=== PATIENT | male | born 1940 | race African-American/Black ===

== ENCOUNTER → 2018-08-10 | Outpatient (REF) | payer MEDICARE, MEDICAID ==
[~2018-08-10] MED LIST: ACETAMIN325 MG PO; ASPIRIN LOW DOS81 M2 PO; ASPIRIN81 MG PO; CIALIS5 MG PO; CIPROFLOXACN500 MG PO; CORTISPORIN OTI10 M1 OT; DICLOFENAC SODI75 MG PO; FLULAVAL IM; FLUZONE SPLT1 M1 IM; GLAUCOMA MEDS; HTN MED; LIPITOR40 MG PO; LISINOPRIL10 MG PO; LOPRESSOR 550 MG/TAB PO; MEDROL4 M1 PO; METOPROL TAR50 MG PO; METOPROLOL TART50 MG PO; PLAVIX75 MG PO; TRAVATAN Z0.004 % OU; ULTRAM50 M1 PO; [UNRECOGNIZED DRUG - OTHER] OT; [UNRECOGNIZED DRUG - REMARK]
[2018-08-10 09:14] LABS: ALBUMIN 4.5 g/dL (3.2-5.0); ALKALINE PHOSPHATASE 82 u/l (38-126); ANION GAP 16 (6-22 (CALC)); BILIRUBIN, TOTAL 0.8 mg/dL (0.0-1.4); BUN 16 mg/dL (8-23); BUN/CREATININE RATIO 17 (12-20 (CALC)); CALCULATED LDLCHOLESTEROL 22 mg/dL (62-129 (CALC)); CARBON DIOXIDE 24 mmol/l (22-30); CHLORIDE 104 mmol/l (95-108); CHOLESTEROL HDL RATIO 1.4 (<4.4 (CALC)); GFR > 60 ML/MIN (>=60 (CALC)); GFR FOR AFR.AMER. > 60 ML/MIN (>=60 (CALC)); HDL CHOLESTEROL 76 mg/dL (>=40); POTASSIUM 4.8 mmol/l (3.5-5.1); SGOT/AST 28 u/l (19-48); SODIUM 139 mmol/l (137-146); TOTAL CHOLESTEROL 109 mg/dl (0-199); TOTAL PROTEIN 7.8 g/dL (6.3-8.2); TOTAL TRIGLYCERIDES 57 mg/dl (30-149); VLDL CHOLESTROL 11 mg/dl (0-38 (CALC))
[2018-08-10 10:27] LABS: HEMATOCRIT 42.9 % (39.0-50.0); HEMOGLOBIN 13.8 g/dl (14.0-18.0); IMMATURE GRANULOCYTES 0.2 % (0.0-5.0); MEAN CELL VOLUME 90.3 fL CALC (80.0-100.0); MEAN CORPUSCULAR HGB 29.1 pG CALC (26.0-32.0); MEAN CORPUSCULAR HGB CONC 32.2 g/L CALC (32.0-36.0); NEUT# 1.73 thou/uL (1.82-7.42); RED BLOOD COUNT 4.75 mill/uL (4.70-6.10); RED CELL DISTRI WIDTH 14.5 % (11.5-15.5)
== END | disposition home or self-care (01) ==
LOC: LAB 07:58
PROVIDERS: ATTEND Nurse Practitioner Family
DX: E78.2 Mixed hyperlipidemia (principal); I10 Essential (primary) hypertension

== ENCOUNTER 2020-09-23 20:17 | Emergency (ER) | payer MEDICARE, MEDICAID ==
[2020-09-23 20:56] LABS: IMMATURE GRANULOCYTES 0.2 % (0.0-5.0); MEAN CORPUSCULAR HGB CONC 31.8 g/dL CAL (32.0-36.0); NEUT# 5.74 thou/uL (1.82-7.42); RED BLOOD COUNT 4.5 mill/uL (4.70-6.10); RED CELL DISTRI WIDTH 14.2 % (11.5-15.5)
[2020-09-23 20:58] LABS: HEMATOCRIT 39.6 % (39.0-50.0); HEMOGLOBIN 12.6 g/dl (14.0-18.0)
[2020-09-23 21:11] LABS: PROTHROMBIN TIME 10.5 SECONDS (9.0-12.5)
[2020-09-23 21:12] LABS: ALKALINE PHOSPHATASE 87 u/l (38-126); ANION GAP 9 (6-22 (CALC)); BILIRUBIN, TOTAL 0.6 mg/dL (0.0-1.4); BUN 11 mg/dL (8-23); BUN/CREATININE RATIO 10 (12-20 (CALC)); CARBON DIOXIDE 29 mmol/l (22-30); CHLORIDE 99 mmol/l (95-108); CREATININE 1.1 mg/dL (0.7-1.3); GFR > 60 ML/MIN (>=60 (CALC)); GFR FOR AFR.AMER. > 60 ML/MIN (>=60 (CALC)); POTASSIUM 4.3 mmol/l (3.5-5.1); SGOT/AST 30 u/l (19-48); SODIUM 133 mmol/l (137-146); TOTAL PROTEIN 7.2 g/dL (6.3-8.2)
[2020-09-23] MEDS ORDERED: CYMBALTA60 MG PO (21:14)
[2020-09-23 21:15] LABS: ACT PARTIAL THROMBO TIME 22.3 SECONDS (20.0-32.5)
[2020-09-23] MEDS ORDERED: ASPIRIN EC LOW81 MG PO (21:16)
[2020-09-23 21:23] LABS: MYOGLOBIN 66 ng/mL (0 - 121)
[2020-09-23 21:46] LABS: D-DIMER 16.67 mg/L (0.19-0.60)
[2020-09-23 22:44] VITALS: BP 158/75
== END 2020-09-23 22:44 | disposition left against medical advice (07) ==
LOC: ED 20:17
PROVIDERS: Family Medicine
DX: R55 Syncope and collapse (principal); I10 Essential (primary) hypertension; F17.200 Nicotine dependence, unspecified, uncomplicated; Z91.19 Patient's noncompliance with other medical treatment and regimen; Z20.822 Contact with and (suspected) exposure to COVID-19